=== PATIENT | female | born 1970 | race Asian ===

== ENCOUNTER 2018-10-28 22:13 | Emergency (ER) | payer MEDICAID, OTHER ==
[~2018-10-28] VITALS: Ht 157.5 cm; Wt 68.0 kg
[2018-10-28] MEDS ORDERED: BENZONATATE 100 MG CAPSULE ONE (22:30)
[2018-10-28] MEDS ORDERED: BENZONATATE 100 MG CAPSULE PO ONE (22:30)
--- NOTE | 2018-10-28 22:31 | NUR ---
Pt walks into ER with c/o cough x 6 weeks & intermittent chest discomfort when coughing x 3 days. Respirations even + unlabored. Denies sob. NSR on quality assurance monitor body.
[2018-10-28] MEDS ORDERED: HYDROCODONE BIT/HOMATROPINE 5 ML UDC PO ONE (22:45)
[2018-10-28] MEDS ORDERED: ALBUTEROL SULFATE 2.5 MG/3 ML NEBU NEB ONE (22:45)
[2018-10-28] MEDS ORDERED: ALBUTEROL SULFATE 2.5 MG/3 ML NEBU ONE (22:49)
[2018-10-28] MEDS ORDERED: HYDROCODONE BIT/HOMATROPINE 5 ML UDC ONE (23:00)
--- NOTE | 2018-10-28 23:45 | NUR ---
Patient discharged to home in stable conditon. Written and verbal after care instructions given. Patient verbalizes understanding of instructions. Pt ambulated out of ER in stable gait. Appears in no apparent distress. Respirations even + unlabored. Denies any pain at this time. States she feels better.
[2018-10-28 23:50] VITALS: BP 126/84
== END 2018-10-28 23:51 | disposition home or self-care (01) ==
LOC: ER 22:16
DX: J20.9 Acute bronchitis, unspecified (principal); K21.9 Gastro-esophageal reflux disease without esophagitis
CPT/HCPCS: 71045; A4663